=== PATIENT | female | born 2000 | race Caucasian/White ===

== ENCOUNTER 2020-06-29 14:53 | Emergency (ER) | payer SELFPAY ==
--- NOTE | 2020-06-29 16:08 | RAD ---
Exam:4 views left knee HISTORY: Pain. COMPARISON: None FINDINGS: Preserved joint spaces. No joint effusion. No fracture or malalignment. IMPRESSION: Unremarkable left knee radiograph.
[2020-06-29] MEDS ORDERED: Ibuprofen 400 MG TAB ONE (16:18)
== END 2020-06-29 16:30 | disposition home or self-care (01) ==
LOC: MADERS 14:53
DX: M25.562 Pain in left knee (principal); Z87.891 Personal history of nicotine dependence